=== PATIENT | female | born 1975 | race Two or more races ===

== ENCOUNTER 2023-03-08 11:26 | Emergency (ER) | payer OTHER ==
[~2023-03-08] VITALS: Ht 157.5 cm; Wt 58.5 kg
== END 2023-03-08 15:58 | disposition left against medical advice (07) ==
LOC: ER 11:26
DX: R07.89 Other chest pain (principal); F41.8 Other specified anxiety disorders

== ENCOUNTER 2024-02-14 14:07 | Emergency (ER) | payer OTHER ==
[~2024-02-14] VITALS: Ht 157.5 cm; Wt 60.3 kg
== END 2024-02-14 21:09 | disposition home or self-care (01) ==
LOC: ER 14:07
DX: I83.90 Asymptomatic varicose veins of unspecified lower extremity (principal); R23.3 Spontaneous ecchymoses

== ENCOUNTER 2025-08-11 15:51 | Outpatient (CLI) | payer OTHER | END 2025-08-11 15:59 | disposition home or self-care (01) | LOC: RAD 15:51 | DX: M25.561 Pain in right knee (principal); M25.562 Pain in left knee ==